=== PATIENT | female | born 1960 | race Caucasian/White ===

== ENCOUNTER 2019-03-30 20:01 | Inpatient (IN) | payer OTHER ==
[~2019-03-30] VITALS: Ht 152.4 cm; Wt 59.5 kg
[~2019-03-30 20:01] MED LIST: AMLO-145 PO; ASPI-831 PO; ATOR40TA68 PO; LANT3I SC; LISI-313 PO; LISI-471 PO
[2019-03-30 20:06] VITALS: Ht 152.4 cm; Wt 59.5 kg
[2019-03-30] MEDS ORDERED: HYDROCODONE/APAP (10/325) TAB PO ONE (21:00)
[2019-03-30] MEDS ORDERED: AZITHROMYCIN 500MG/NS (PMX) 250 ML IVPB ONE (21:30)
[2019-03-30] MEDS ORDERED: CEFTRIAXONE 1 GM/50 ML (PMX) 50 ML IVPB ONE (21:30)
[2019-03-31] VITALS (19 sets, daily range): BP systolic 142–227; BP diastolic 47–140; PULSE 73–87; RESP 21–23
[2019-03-31] MEDS ORDERED: NITROGLYCERIN (SL) 0.4 MG TAB SL PRN (02:30)
[2019-03-31] MEDS ORDERED: ACETAMINOPHEN 325 MG TAB PO PRN (02:30)
[2019-03-31] MEDS ORDERED: ALBUTEROL/IPRATROPIUM (NEB) 3 ML AMP HHN PRN (02:30)
[2019-03-31] MEDS ORDERED: NACL 0.9% 3 ML SYG IV SCH (02:30)
[2019-03-31] MEDS: ONDANSETRON 4 MG INJ IV PRN (03:17)
[2019-03-31] MEDS ORDERED: METOPROLOL 25 MG TAB PO ONE (05:00)
[2019-03-31] MEDS ORDERED: LISINOPRIL 10 MG TAB PO ONE (05:00)
[2019-03-31] MEDS: HEPARIN 5,000 UNIT/1 ML VIAL SC SCH ×2 (08:37→21:00)
[2019-03-31] MEDS: ASPIRIN 81 MG TAB PO SCH (08:37)
[2019-03-31] MEDS: hydrALAzine 20 MG INJ IV PRN ×2 (14:20→20:38)
[2019-03-31] MEDS: AMLODIPINE 5 MG TAB PO SCH ×2 (15:00→21:09)
[2019-03-31] MEDS: morphine 2 MG INJ IV PRN ×2 (15:20→22:14)
[2019-03-31] MEDS ORDERED: LIDOCAINE 1% (MDV) 20 ML INJ INJ PRN (18:30)
[2019-03-31] MEDS: INSULIN GLARGINE [LANTus] (100 UNITS/ML) SYG SC SCH (21:10)
[2019-03-31] MEDS ORDERED: hydrALAzine 20 MG INJ IV ONE (22:00)
[2019-03-31] MEDS ORDERED: CEFTRIAXONE 1 GM/50 ML (PMX) 50 ML IVPB SCH (22:30)
[2019-03-31] MEDS ORDERED: AZITHROMYCIN 500MG/NS (PMX) 250 ML IVPB SCH (23:00)
[2019-04-01] VITALS (7 sets, daily range): BP systolic 118–182; BP diastolic 56–85; PULSE 83–91; RESP 18–22
[2019-04-01] MEDS: ONDANSETRON 4 MG INJ IV PRN ×2 (00:23→17:53)
[2019-04-01] MEDS ORDERED: LABETALOL HCL 20MG INJ IV ONE ×2 (01:25→01:30)
[2019-04-01] MEDS: AMLODIPINE 5 MG TAB PO SCH ×2 (08:24→20:24)
[2019-04-01] MEDS: ASPIRIN 81 MG TAB PO SCH (08:24)
[2019-04-01] MEDS: HEPARIN 5,000 UNIT/1 ML VIAL SC SCH ×2 (08:28→20:48)
[2019-04-01] MEDS: morphine 2 MG INJ IV PRN ×3 (09:35→22:27)
[2019-04-01] MEDS: hydrALAzine 20 MG INJ IV PRN ×2 (09:38→17:52)
[2019-04-01] MEDS: INSULIN GLARGINE [LANTus] (100 UNITS/ML) SYG SC SCH (20:48)
[2019-04-02] VITALS (21 sets, daily range): BP systolic 133–180; BP diastolic 52–107; PULSE 2–97; RESP 16–20
[2019-04-02] MEDS: hydrALAzine 20 MG INJ IV PRN (00:20)
[2019-04-02] MEDS: ONDANSETRON 4 MG INJ IV PRN (02:24)
[2019-04-02] MEDS ORDERED: GLUCOSE GEL 15 GRAM TUBE PO PRN ×2 (02:30)
[2019-04-02] MEDS ORDERED: GLUCOSE GEL 15 GRAM TUBE BUCCAL PRN (02:30)
[2019-04-02] MEDS ORDERED: DEXTROSE 50% 50 ML SYRINGE IV PRN ×2 (02:30)
[2019-04-02] MEDS ORDERED: GLUCAGON 1 MG INJ IM PRN (02:30)
[2019-04-02] MEDS: morphine 2 MG INJ IV PRN (05:48)
[2019-04-02] MEDS: AMLODIPINE 5 MG TAB PO SCH ×2 (08:38→21:44)
[2019-04-02] MEDS: ASPIRIN 81 MG TAB PO SCH (08:38)
[2019-04-02] MEDS: HEPARIN 5,000 UNIT/1 ML VIAL SC SCH ×2 (08:43→21:44)
[2019-04-02] MEDS ORDERED: LISINOPRIL 5 MG TAB PO SCH (09:00)
[2019-04-02] MEDS ORDERED: EPOETIN ALFA-EPBX (ESRD) 10,000 UNIT/ML VIAL SC SCH (17:00)
[2019-04-02] MEDS ORDERED: INSULIN GLARGINE [LANTus] (100 UNITS/ML) SYG SC SCH (21:00)
[2019-04-03] MEDS ORDERED: ZOLPIDEM 5 MG TAB PO PRN
[2019-04-03 04:57] VITALS: BP 186/78; RESP 18
[2019-04-03] MEDS: hydrALAzine 20 MG INJ IV PRN (05:37)
[2019-04-03 07:38] VITALS: BP 145/68; PULSE 96; RESP 17
[2019-04-03] MEDS ORDERED: LISINOPRIL 20 MG TAB PO SCH (09:00)
[2019-04-03] MEDS ORDERED: LABETALOL 100 MG TAB PO SCH (09:00)
[2019-04-03] MEDS: HEPARIN 5,000 UNIT/1 ML VIAL SC SCH (09:13)
[2019-04-03] MEDS: ASPIRIN 81 MG TAB PO SCH (09:14)
[2019-04-03] MEDS: morphine 2 MG INJ IV PRN (09:15)
[2019-04-03] MEDS: AMLODIPINE 5 MG TAB PO SCH (09:20)
[2019-04-03 11:22] VITALS: BP 117/56; PULSE 62; RESP 17
[2019-04-03 15:20] VITALS: BP 148/64; PULSE 85; RESP 16
[2019-04-03] MEDS ORDERED: ATORVASTATIN 40 MG TAB PO SCH (21:00)
== END 2019-04-03 19:30 | disposition home or self-care (01) | DRG 313 ==
LOC: E/R 20:01 → TEL 21:53 → EDBEDREQ 03-31 01:58
PROVIDERS: ADMIT Internal Medicine; ATTEND Internal Medicine
PROC: 5A1D70Z Performance of Urinary Filtration, Intermittent, Less than 6 Hours Per Day (ICD-10-PCS; 2019-03-31)
PROC: 5A1D70Z Performance of Urinary Filtration, Intermittent, Less than 6 Hours Per Day (ICD-10-PCS; principal; 2019-04-02)
DX: R07.89 Other chest pain (principal); N18.6 End stage renal disease; J18.9 Pneumonia, unspecified organism; J96.01 Acute respiratory failure with hypoxia; I12.0 Hypertensive chronic kidney disease with stage 5 chronic kidney disease or end stage renal disease; J90 Pleural effusion, not elsewhere classified; E11.22 Type 2 diabetes mellitus with diabetic chronic kidney disease; Z99.81 Dependence on supplemental oxygen; I16.0 Hypertensive urgency; D63.1 Anemia in chronic kidney disease; I25.10 Atherosclerotic heart disease of native coronary artery without angina pectoris; Z79.4 Long term (current) use of insulin; Z79.82 Long term (current) use of aspirin; Z99.2 Dependence on renal dialysis
CPT/HCPCS: 36415; 70450; 71045; 71250; 74176; 80048; 80053; 80061; 82550; 82553; 82962; 83036; 83735; 83880; 84100; 84443; 84484; 85025; 85610; 86706; 87340; 90935; 93005; 93306; J0360; J0456; J0696; J1644; J1815; J2270; J2405; Q5105